=== PATIENT | female | born 2000 | race Caucasian/White ===

== ENCOUNTER 2020-06-04 18:39 | Emergency (ER) | payer BC, MEDICAID ==
[2020-06-04 21:04] LABS: HEMOGLOBIN 12.5 gm/dl (12.3-15.3); RED BLOOD COUNT 4.44 M/UL (4.00-5.10); WHITE BLOOD COUNT 14.6 K/UL (4.5-11.0)
[2020-06-04 21:20] LABS: BUN/CREATININE RATIO 16 (0-10)
== END 2020-06-04 22:25 | disposition home or self-care (01) ==
LOC: ER1 18:39
PROVIDERS: Emergency Medicine
DX: O21.9 Vomiting of pregnancy, unspecified (principal)
CPT/HCPCS: 80053; 81001; 83605; 83690; 84702; 85025; 87086; 96374; 99284; J2405; J7030